=== PATIENT | female | born 1970 | race Caucasian/White ===

== ENCOUNTER → 2018-10-09 | Outpatient (CLI) | payer BC ==
--- NOTE | 2018-10-10 12:02 | REP ---
Clinical: Left femoral hernia. Technique: Real time wray scale and color evaluation using linear high frequency transducer. Findings: Directed ultrasound examination of the left groin demonstrates a nonreducible fat-containing inguinal hernia through the inguinal canal with a 6.5 mm peritoneal defect identified. No femoral hernia is appreciated. Impression: Small left inguinal hernia. Electronically Signed by Gregg Wood MD 10/10/2018 11:54 A
== END ==
LOC: M RAD 09:11
PROVIDERS: ATTEND Surgery
DX: K41.90 Unilateral femoral hernia, without obstruction or gangrene, not specified as recurrent (principal)

== ENCOUNTER 2019-07-29 09:22 | Day surgery (SDC) | payer OTHER, SELFPAY ==
[~2019-07-29] VITALS: Ht 157.5 cm; Wt 58.4 kg
[~2019-07-29 09:22] MED LIST: KETOROLAC 60 MG/2 ML VIAL (J1885) As Ordered ONE; LAMO200T3 PO; LIDOCAINE 2% INJ 100 MG/5 ML SDV (FOR ANES.) As Ordered ONE; LR 1,000 ML IV ONE; ONDANSETRON 4MG/2ML VIAL (J2405) As Ordered ONE; PHEN-239 PO; ROCURONIUM BROMIDE 50 MG/5 ML VIAL As Ordered ONE; VRAY3CAP PO; ZINC1TAB2 PO; [UNRECOGNIZED DRUG - OTHER] PO; ceFAZolin SOD 2 GM in IV 1 EA IV ONE; dexameTHASONE 4 MG/ML 1ML VIAL (J1100) As Ordered ONE; propofoL 200 MG/20 ML VIAL As Ordered ONE
[2019-07-29] MEDS ORDERED: BUPIVACAINE/EPIN 0.25% 30 ML VIAL As Ordered ONE (09:32)
[2019-07-29] MEDS ORDERED: MIDAZOLAM INJ 2 MG/2 ML VIAL (J2250) As Ordered ONE (09:33)
[2019-07-29] MEDS ORDERED: fentaNYL 250 MCG/5 ML INJECTION (J3010) As Ordered ONE (09:33)
[2019-07-29] MEDS ORDERED: ACETAMINOPHEN 1000MG 100ML IV BTL (OFIRMEV) (J0131 PER 10MG) As Ordered ONE (10:38)
[2019-07-29] MEDS ORDERED: LACRILUBE (AKWA TEARS) OPHTH OINT 3.5 GM As Ordered ONE (10:39)
[2019-07-29] MEDS ORDERED: SUGAMMADEX SODIUM 500 MG/5 ML VIAL (BRIDION) As Ordered ONE (10:45)
[2019-07-29] MEDS ORDERED: LR 1,000 ML IV SCH (11:45)
[2019-07-29] MEDS ORDERED: oxyCODONE 5MG TAB PO PRN (11:45)
[2019-07-29] MEDS ORDERED: HYDROMORPHONE HCL 0.5 MG/ 0.5 ML SYRINGE (J1170 PER 1) IV PRN (11:45)
[2019-07-29] MEDS ORDERED: ONDANSETRON 4MG/2ML VIAL (J2405) IV PRN (11:45)
[2019-07-29] MEDS ORDERED: fentaNYL 100 MCG/2 ML INJECTION (J3010) IV PRN (11:45)
[2019-07-29] MEDS ORDERED: NORCO, ANEXSIA 5/325MG TABLET (HYDROcodone/ACETAMINOPHEN) PO PRN (12:46)
[2019-07-29 13:33] VITALS: BP 114/71
--- NOTE | 2019-07-30 13:39 | RO ---
DATE OF PROCEDURE: 07/29/2019 PREOPERATIVE DIAGNOSIS: Left inguinal hernia. POSTOPERATIVE DIAGNOSIS: Left inguinal hernia. PROCEDURE: Robotic repair of incarcerated left inguinal hernia. SURGEON: Dr. Harrison KILN BURNER: None ANESTHESIA: General. ESTIMATED BLOOD LOSS: 5 mL. COMPLICATIONS: None. INDICATION FOR PROCEDURE: The patient 49-year-old female who presents with persistent pain in the left lower groin, found have incarcerated hernia on ultrasound. Recommendation was to proceed with robotic repair. Risks and benefits of procedure, not limited to, but including bleeding, infection, hernia recurrence, hernia formation, damage to surrounding structures, need for further surgery were discussed in detail with the patient, informed consent was obtained and procedure was planned. DESCRIPTION OF PROCEDURE: The patient was brought back to operating room 7. After sufficient sedation, the abdomen was sterilely prepped and draped. Next, a time out was done to confirm proper patient and proper procedure. Following that, an 8 mm incision was made in the left lower quadrant, Veress needle was inserted and the abdomen was insufflated to 15 mmHg. Veress needle was then removed. Another 8 mm robotic port was used to gain access to the abdomen. Once the abdomen was entered, two more 8 mm ports were placed, one in the midline and one in the right upper quadrant. The robot was then docked to the ports. Next, from the console the pelvis was examined and there were no signs of obvious hernias intraperitoneally. The peritoneal space was opened in the left groin with a curved incision. The preperitoneal space was dissected free medially all the way to the pubic symphysis and then around the round ligament revealing two separate small defects containing a small amount of fat. The fat was reduced and completely removed out of the preperitoneal space. Once that was completed, the dissection was continued posteriorly, freeing up the peritoneum from the round ligament enough to be able to place a mesh, Bard 3-D Max light medium size mesh was then placed into the preperitoneal space, sutured to the pubic symphysis with #2-0 Vicryl suture. The peritoneum was then brought over top of the mesh and sutured back together using a running 2-0 V-Loc suture. Once this was completed, the abdomen was desufflated. The fat that was in the hernia was removed from the abdomen. The ports were removed. Skin incisions were closed with 4-0 Vicryl subcuticular sutures. The abdomen was cleaned and dried. Steri-Strips, 4x4 and tape were applied, thus ending procedure.
== END 2019-07-29 13:44 | disposition home or self-care (01) ==
LOC: M SDC 09:22
PROVIDERS: ATTEND Surgery
DX: K40.30 Unilateral inguinal hernia, with obstruction, without gangrene, not specified as recurrent (principal); G40.909 Epilepsy, unspecified, not intractable, without status epilepticus; K58.9 Irritable bowel syndrome, unspecified; Z79.899 Other long term (current) drug therapy; Z88.8 Allergy status to other drugs, medicaments and biological substances; Z88.5 Allergy status to narcotic agent; Z91.040 Latex allergy status
CPT/HCPCS: 49650; 81025; C1781; J0131; J0690; J1100; J1885; J2250; J2405; J3010